=== PATIENT | male | born 1970 | race Hispanic/Latino ===

== ENCOUNTER 2018-10-28 19:07 | Inpatient (IN) | payer MEDICAID ==
--- NOTE | 2018-10-28 19:55 | C.PDOC ---
History Of Present Illness 48 year old male presents to the ED requesting detox for alcohol and heroin abuse. Patient reports his last use was today [employer]. Patient denies SI/HI, hallucinations, injury, fall, trauma. Time Seen by Provider: 10/28/18 19:54 Chief Complaint (Nursing): Substance Abuse History Per: Patient History/Exam Limitations: intoxication Onset/Duration Of Symptoms: Hrs Current Symptoms Are (Timing): Still Present Suicide/Self Injury Attempted (Context): None Modifying Factor(s): Alcohol, Narcotics Associated Symptoms: denies: Depression, Suicidal Thoughts, Suicidal Plan Recent travel outside of the [place]: No Additional History Per: Patient Past Medical History Reviewed: Historical Data, Nursing Documentation, Vital Signs Vital Signs: Last Vital Signs Temp 98.2 F 10/28/18 19:23 Pulse 62 10/28/18 19:23 Resp 20 10/28/18 19:23 BP 150/100 H 10/28/18 19:23 Pulse Ox 96 10/28/18 19:23 - Medical History PMH: No Chronic Diseases Surgical History: No Surg Hx Family History: States: Unknown Family Hx - Social History Hx Alcohol Use: Yes Hx Substance Use: Yes - Immunization History Hx Tetanus Toxoid Vaccination: No Hx Influenza Vaccination: No Hx Pneumococcal Vaccination: No Review Of Systems Constitutional: Negative for: Fever, Chills Cardiovascular: Negative for: Chest Pain, Palpitations Respiratory: Negative for: Shortness of Breath Gastrointestinal: Negative for: Vomiting, Abdominal Pain Skin: Negative for: Rash Psych: Negative for: Depression, Suicidal ideation Physical Exam - Physical Exam Appears: Non-toxic, No Acute Distress Skin: Warm, Dry Head: Normacephalic Eye(s): bilateral: Normal Inspection Neck: Supple Chest: Symmetrical Cardiovascular: Rhythm Regular Respiratory: No Rales, No Rhonchi, No Wheezing Gastrointestinal/Abdominal: Soft, No Tenderness, No Guarding, No Rebound Extremity: Bilateral: Atraumatic, Normal Color And Temperature, Normal ROM Neurological/Psych: Oriented x3, Normal Speech, Normal Cognition Gait: Steady ED Course And Treatment - Laboratory Results Result Diagrams: 10/28/18 20:36 10/28/18 20:36 O2 Sat by Pulse Oximetry: 96 (ON RA) Pulse Ox Interpretation: Normal Progress Note: Plan: - Labs. - UA. - Crisis Disposition Discussed With : Glenn Moses Comment: accepted the pt on his service and took over the care at 10PM Doctor Will See Patient In The: Hospital Counseled Patient/Family Regarding: Studies Performed, Diagnosis - Disposition Disposition: HOSPITALIZED Disposition Time: 19:54 Condition: FAIR Forms: [facility] (Japanese) - Clinical Impression Clinical Impression: Alcohol use disorder, severe, dependence, Opioid use disorder, severe, dependence - Scribe Statement The provider has reviewed the documentation as recorded by the Scribe Burke Hollingsworth All medical record entries made by the Scribe were at my direction and personally dictated by me. I have reviewed the chart and agree that the record accurately reflects my personal performance of the history, physical exam, medical decision making, and the department course for this patient. I have also personally directed, reviewed, and agree with the discharge instructions and disposition. Decision To Admit - Pt Status Changed To: Hospital Disposition Of: Inpatient - Admit Certification Admit to Inpatient:: After my assessment, the patient will require hospitalization for at least two midnights. This is because of the severity of symptoms shown, intensity of services needed, and/or the medical risk in this patient being treated as an outpatient. - InPatient: Physician Admission Certification: I certify that this patient requires 2 or more midnights of care for the following reason:: After my assessment, the patient will require hospitalization for at least two midnights. This is because of the severity of symptoms shown, intensity of services needed, and/or the medical risk in this patient being treated as an outpatient. - . Bed Request Type: Detox Admitting Physician: Glenn Moses Patient Diagnosis: Alcohol use disorder, severe, dependence, Opioid use disorder, severe, dependence
[2018-10-28 20:41] LABS: BASO # 0.2 K/uL (0.0-0.2); EOS # 0.1 K/uL (0.0-0.7); EOS % 0.9 % (0.0-4.0); HEMOGLOBIN 13.2 g/dL (12.0-18.0); LYMPH # 1.9 K/uL (1.0-4.3); LYMPH % 31.2 % (20.0-40.0); MEAN CELL VOLUME 100.7 fL (80.0-94.0); MEAN CORPUSCULAR HGB CONC 33.8 g/dL (33.0-37.0); MEAN PLATELET VOLUME 8.9 fL (7.2-11.7); MONO # 0.6 K/uL (0.0-0.8); NEUT # 3.3 K/uL (1.8-7.0); NEUT % 54.9 % (50.0-75.0); NRBC % 0.1 % (0.0-2.0); RBC 3.88 Mil/uL (4.40-5.90); RED CELL DISTRIBUTION WIDTH 12.6 % (11.5-14.5)
[2018-10-28 20:45] LABS: SQUAMOUS EPITHIAL < 1 /hpf (0-5); URINE BACTERIA OCC (<OCC); URINE BILIRUBIN NEGATIVE (NEGATIVE); URINE BLOOD NEGATIVE (NEGATIVE); URINE CLARITY Clear (Clear); URINE COLOR Straw (YELLOW); URINE GLUCOSE (UA) NORMAL (Normal); URINE LEUKOCYTE ESTERASE NEG Leu/uL (Negative); URINE PROTEIN NEGATIVE (NEGATIVE); URINE UROBILINOGEN NORMAL mg/dL (0.2-1.0)
[2018-10-28 20:55] LABS: ALB/GLOB RATIO 1.3 (1.0-2.1); ALBUMIN 4.5 g/dL (3.5-5.0); ALT/SGPT 276 U/L (21-72); AST/SGOT 168 U/L (17-59); BLOOD UREA NITROGEN 8 mg/dL (9-20); CALCIUM 8.7 mg/dl (8.6-10.4); GFR NON-AFRICAN AMERICAN > 60
[2018-10-28 21:14] LABS: OPIATES, UR POSITIVE (NEGATIVE); PHENCYCLIDINE, UR NEGATIVE (NEGATIVE)
[2018-10-28 21:28] LABS: BARBITURATES, UR NEGATIVE (NEGATIVE); BENZODIAZEPINES, UR NEGATIVE (NEGATIVE)
[2018-10-28] MEDS ORDERED: Aluminum Hydroxide/Magnesium Hydroxide Susp (30 mL) PO PRN (23:31)
--- NOTE | 2018-10-29 00:33 | PCM.BM ---
<Zander Albarado - Last Filed: 10/29/18 00:30> Treatment Plan Problems - Problems identified on initial assessmt defensive coping Date Initiated: 10/29/18 Time Initiated: 00:32 Assessment reference: NA Status: Active altered family process Date Initiated: 10/29/18 Time Initiated: 00:33 Assessment reference: NA Status: Active knowledge deficit r/t alcohol use Date Initiated: 10/29/18 Time Initiated: 00:34 Assessment reference: NA Status: Active Treatment assets and liabiliti Patient Assests: cooperative, ADL independent, cognitively intact Patient Liabilities: substance abuse - Milieu Protocol Maintain good personal hygiene: daily Encourage regular showers, daily Remind patient to perform daily oral care, daily Assist patient to perform ADL's Maintain personal safety: every shift Educate patient to report safety concerns to staff, every shift Monitor environment for contraband/sharps Medication safety: Monitor for expected outcome, potential side effects: every shift, Assess barriers to learning: every shift, Assess readiness for medication education: every shift <Rafy Melendez - Last Filed: 10/29/18 14:40> - Diagnosis (1) Alcohol use disorder, severe, dependence Status: Acute Interventions: 10/29/18 14:40 * Assess 7x/week regarding severity of withdrawal * Educate regarding risks, benefits, side effects and alternatives of medications * Use Motivational Interviewing for abstinence * Use CBT for relapse prevention * Medication management for withdrawal symptoms * Encourage medication assisted treatment * (2) Opioid use disorder, severe, dependence Status: Acute Interventions: 10/29/18 14:40 * Assess 7x/week regarding severity of withdrawal * Educate regarding risks, benefits, side effects and alternatives of medications * Use Motivational Interviewing for abstinence * Use CBT for relapse prevention * Medication management for withdrawal symptoms * Encourage medication assisted treatment *
[2018-10-29] MEDS: Multiple Vitamins Tab PO SCH (09:44)
--- NOTE | 2018-10-29 13:05 | PCM.PSYCH ---
Initial Psychiatric Evaluation - Initial Psychiatric Evaluation Type of Admission: Voluntary Legal Status: Capacity Chief Complaint (in patient's own words): "I am withdrawing" History of Present Illness and Precipitating Events: 48 yo male, , living with his and 16 year old son in [place], unemployed presents for detox from heroin. Pt reports using heroin via IV daily for 19 years. He uses up to 40 bags a day, his last use was 10/28 . Pt was previously involved in a Methadone program for one year but stopped 3 weeks ago. He was on 90 mg of Methadone daily. Pt denies any overdoses or periods of sobriety. Pt reports daily alcohol use since age 11. He drinks 10, 24 ounce cans of beer and few shots of joe daily, his last use was 10/28. He reports hx of blackouts, but denies any DTs, or seizures. Pt also states he smokes marijuana occasionally. Pt states he has been to detox 3x and 1 outpatient rehab, last detox was 10 years ago. Pt admits to hx of trauma after finding his 26 year old son from drug overdose. Pt currently denies any SI or HI. PMHx: Hep C, HTN with no f/u or medication for either Psych Hx: denies but he has PTSD sxs from finding his son OD'ed and . Family Psych Hx: none Current Medications: Active Medications Generic Name Dose Route Start Last Admin Trade Name Freq PRN Reason Stop Dose Admin Al Hydrox/Mg Hydrox/Simethicone 30 ml 10/28/18 23:31 Maalox 30 Ml PO TID PRN Indigestion / Heartburn Clonidine HCl 0.1 mg 10/28/18 23:31 Catapres PO Q4 PRN COWS Score More or Equal to 5 Dicyclomine HCl 10 mg 10/28/18 23:25 Bentyl PO Q6 PRN Muscle spasm Folic Acid 1 mg 10/29/18 10:00 10/29/18 09:44 Folic Acid PO 1 mg DAILY CHELO Administration Hydroxyzine HCl 25 mg 10/28/18 23:23 10/28/18 23:40 Atarax PO 25 mg Q6 PRN Administration Anxiety Ibuprofen 600 mg 10/28/18 23:28 Motrin Tab PO Q6 PRN Pain, moderate (4-7) Loperamide HCl 2 mg 10/28/18 23:31 Imodium PO Q8 PRN Diarrhea Lorazepam 1 mg 10/28/18 23:30 10/29/18 09:45 Ativan PO 1 mg Q4H PRN Administration Symptoms of alcohol withdrawl Lorazepam 1 mg 10/28/18 23:30 10/29/18 12:37 Ativan PO 11/02/18 23:29 1 mg Q4 CHELO Administration Taper Methadone HCl 20 mg 10/29/18 13:00 Methadone PO 10/29/18 13:01 ONCE ONE Mirtazapine 15 mg 10/29/18 22:00 Remeron PO HS CHELO Multivitamins 1 tab 10/29/18 10:00 10/29/18 09:44 Hexavitamin PO 1 tab DAILY CHELO Administration Ondansetron HCl 4 mg 10/28/18 23:31 Zofran Tab PO Q8 PRN Nausea/Vomiting Pseudoephedrine HCl 60 mg 10/28/18 23:31 Sudafed Tab PO QID PRN Nasal/Sinus Congestion Thiamine HCl 100 mg 10/29/18 10:00 10/29/18 09:47 Vitamin B1 Tab PO Not Given DAILY CHELO Trazodone HCl 50 mg 10/28/18 23:28 10/28/18 23:41 Desyrel PO 50 mg HS PRN Administration Insomnia Past Psychiatric History - Past Psychiatric History Previous Treatment History: None Pertinent Medical Hx (Current Medical&Sleep Prob, Allergies): Allergies Allergy/AdvReac Type Severity Reaction Status Date / Time No Known Allergies Allergy Verified 10/28/18 19:26 Review of Systems - Psychiatric Psychiatric: Abnormal Sleep Pattern, Anhedonia, Anxiety, Change in Appetite, Depression, Difficulty Concentrating, Irritability. absent: Hallucinations, Homicidal Ideation, Paranoia, Suicidal Ideation Mental Status Examination - Personal Presentation Personal Presentation: Looks stated age - Affect Affect: Constricted - Motor Activity Motor Activity: Calm - Reliability in Providing Information Reliability in Providing Information: Good - Speech Speech: Organized - Mood Mood: Depressed, Anxious - Formal Thought Process Formal Thought Process: No Impairment - Cognitive Functions Orientation: Person, Place, Situation, Time Sensorium: Alert Attention/Concentration: Easily distracted Estimate of Intelligence: Average Judgement: Intact, as evidence by: Insight regarding need for hospitalization Memory: Recent intact, as evidence by: Ability to recall events of the day, Remote intact, as evidenced by: Abilit to recall sig. life events - Risk Risk: Withdrawal, Diminished functioning - Strength & Assets Inventory Strength & Assets Inventory: Cooperative - Limitations Limitations: Other DSM 5 DX - DSM 5 DSM 5 Diagnosis: Alcohol use disorder, severe Alcohol withdrawal Opioid use disorder, severe Opioid withdrawal PTSD Depressive d/o - unspecified - Recommended/Plan of Treatment Treatment Recommendations and Plan of Treatment: Taper with Methadone for opioids Taper with ativan for alcohol (LFTs are elevated) Gabapentin for augmentation Remeron for mood and insomnia Start on Thiamine, Folic Acid, multivitamins, Remeron, As needed medications Maalox, Clonidine, Bentyl, Atarax, Motrin, Imodium, Zofran, Ativan, Sudafed, Trazadone All risks, benefits and alternatives of the meds discussed, and the pt agreed and understood. Attend groups and activities Supportive therapy and psychoeducation IN for abstinence CBT for relapse prevention Encourage MAT Refer to rehab or IOP, and self-help groups Teach healthy lifestyle methods, i.e. diet, exercise, meditation Smoking cessation with IN Nicotine patch if needed 35 min Projected ELOS: 34 min Prognosis: [facility] treatment - Smoking Cessation Smoking Cessation Initiated: Yes
[2018-10-30] MEDS: Multiple Vitamins Tab PO SCH (10:30)
[2018-10-31] MEDS: Multiple Vitamins Tab PO SCH (09:37)
--- NOTE | 2018-10-31 10:24 | PCM.PYCHPN ---
Psychiatric Progress Note - Psychiatric Progress Note Patient seen today, length of contact: 16 min Patient Chief Complaint: "I am so so" Problems Identified/Issues Discussed: The pt is seen, chart reviewed, case is discussed with staff. Support and psychoeducation given, CBT and WI used briefly The pt is improving slowly but needs more time due to severity of symptoms and relapse risk. No SEs from medications, risks discussed. After care discussed Medication Change: Yes (detox changes daily) Medical Record Reviewed: Yes Mental Status Examination - Cognitive Function Orientation: Person, Place, Situation, Time Memory: Intact Attention: WNL Concentration: Poor Association: WNL Fund of Knowledge: WNL - Mood Mood: Depressed, Anxious - Affect Affect: Constricted - Speech Speech: Appropriate - Formal Thought Process Formal Thought Process: No Impairment - Suicidal Ideation Suicidal Ideation: No - Homicidal Ideation Homicidal Ideation: No Goal/Treatment Plan - Goal/Treatment Plan Need for Continued Stay: Discharge may exacerbated symptoms, Severe functional impairment Progress Toward Problem(s) and Goals/Treatment Plan: Taper with Methadone for opioids Taper with ativan for alcohol (LFTs are elevated) Gabapentin for augmentation Remeron for mood and insomnia Start on Thiamine, Folic Acid, multivitamins, Remeron, As needed medications Maalox, Clonidine, Bentyl, Atarax, Motrin, Imodium, Zofran, Ativan, Sudafed, Trazadone All risks, benefits and alternatives of the meds discussed, and the pt agreed and understood. Attend groups and activities Supportive therapy and psychoeducation [place] for abstinence CBT for relapse prevention Encourage MAT Refer to rehab or IOP, and self-help groups Teach healthy lifestyle methods, i.e. diet, exercise, meditation Smoking cessation with [place] Nicotine patch if needed
--- NOTE | 2018-10-31 10:24 | PCM.PYCHPN ---
Psychiatric Progress Note - Psychiatric Progress Note Patient seen today, length of contact: 16 min Patient Chief Complaint: "I am not OK yet" Problems Identified/Issues Discussed: The pt is seen, chart reviewed, case discussed with staff. The pt is compliant with medications and reports no side-effects. Symptoms are improving but needs more time to stabilize. Pt attends groups and activities. Support given, psycho-education provided. After care discussed. Medication Change: Yes (detox changes daily) Medical Record Reviewed: Yes Mental Status Examination - Cognitive Function Orientation: Person, Place, Situation, Time Memory: Intact Attention: WNL Concentration: Poor Association: WNL Fund of Knowledge: WNL - Mood Mood: Depressed, Anxious - Affect Affect: Constricted - Speech Speech: Appropriate - Formal Thought Process Formal Thought Process: No Impairment - Suicidal Ideation Suicidal Ideation: No - Homicidal Ideation Homicidal Ideation: No Goal/Treatment Plan - Goal/Treatment Plan Need for Continued Stay: Discharge may exacerbated symptoms, Severe functional impairment Progress Toward Problem(s) and Goals/Treatment Plan: Taper with Methadone for opioids Taper with ativan for alcohol (LFTs are elevated) Gabapentin for augmentation Remeron for mood and insomnia Start on Thiamine, Folic Acid, multivitamins, Remeron, As needed medications Maalox, Clonidine, Bentyl, Atarax, Motrin, Imodium, Zofran, Ativan, Sudafed, Trazadone All risks, benefits and alternatives of the meds discussed, and the pt agreed and understood. Attend groups and activities Supportive therapy and psychoeducation [place] for abstinence CBT for relapse prevention Encourage MAT Refer to rehab or IOP, and self-help groups Teach healthy lifestyle methods, i.e. diet, exercise, meditation Smoking cessation with SC Nicotine patch if needed
[2018-10-31 14:47] VITALS: RESP 18
[2018-10-31 17:29] VITALS: TEMP 97
--- NOTE | 2018-11-01 08:47 | PCM.PYCHDC ---
Mental Status Examination - Mental Status Examination Orientation: Person, Place, Situation, Time Memory: Intact Mood: Anxious Affect: Constricted Speech: Appropriate Attention: WNL Concentration: Poor Association: WNL Fund of Knowledge: WNL Formal Thought Process: No Impairment Suicidal Ideation: No Current Homicidal Ideation?: No Discharge Summary - Discharge Note Reason for Hospitalization: Opioid and alcohol detox Consultations:: List each consultation separately and include: 1. Reason for request. 2. Findings. 3. Follow-up Summary of Hospital Course include:: 1. Description of specific treatment plan utilized for patients during their course of treatmen. 2. Summarize the time- course for resolution of acute symptoms and/or regressed behaviors. 3. Describe issues identified and worked on during hospitalization. 4. Describe medication utilized. 5. Describe medical problems identified and treated. 6. Reassessment of suicide risk Summary of Hospital Course: 48 yo male, , living with his and 16 year old son in [place], unemployed presents for detox from heroin. On admission: Pt reports using heroin via IV daily for 19 years. He uses up to 40 bags a day, his last use was 10/28 . Pt was previously involved in a Methadone program for one year but stopped 3 weeks ago. He was on 90 mg of Methadone daily. Pt denies any overdoses or periods of sobriety. Pt reports daily alcohol use since age 11. He drinks 10, 24 ounce cans of beer and few shots of joe daily, his last use was 10/28. He reports hx of blackouts, but denies any DTs, or seizures. Pt also states he smokes marijuana occasionally. Pt states he has been to detox 3x and 1 outpatient rehab, last detox was 10 years ago. Pt admits to hx of trauma after finding his 26 year old son from drug overdose. Pt currently denies any SI or HI. PMHx: Hep C, HTN with no f/u or medication for either Psych Hx: denies but he has PTSD sxs from finding his son OD'ed and . Family Psych Hx: none Hospital course: The pt was admitted and started on treatment with psychotherapy, support, psychoeducation and medications. All the risks and benefits of medications are discussed and the patient understood and agreed. ND and CBT used. The pt attended groups and activities, as well as milieu therapy. The pt improved with the treatments provided. After care discussed with the patient. He was irate at times but calmed down. He left a day early but completed most of his detox and was stable enough. Risks are still discussed, though He will go to [facility] in [place]. - Final Diagnosis (DSM 5) Condition upon Discharge: IMPROVED DSM 5: Alcohol use disorder, severe Alcohol withdrawal Opioid use disorder, severe Opioid withdrawal PTSD Depressive d/o - unspecified Disposition: HOME/ ROUTINE Follow-up Treatment Plan: Continue below medications after discharge. Follow after care plan as discussed. Use relapse prevention skills Return to ER or call 911 if suicidal, homicidal or symptoms relapse. Stay away from stress, alcohol and drugs. See primary doctor regularly and get labs. Prescriptions/Medication Reconciliation: Mirtazapine [Remeron] 15 mg PO HS #30 tab
[2018-11-01] MEDS: Multiple Vitamins Tab PO SCH (09:04)
[2018-11-01 10:33] VITALS: BP 135/94; PULSE 90; O2SAT 100
== END 2018-11-01 10:37 | disposition home or self-care (01) | DRG 744 ==
LOC: C.ER 19:07 → C.7D 22:03
PROVIDERS: ADMIT Psychiatry & Neurology Psychiatry; ATTEND Psychiatry & Neurology Psychiatry
PROC: HZ2ZZZZ Detoxification Services for Substance Abuse Treatment (ICD-10-PCS; principal; 2018-10-28)
PROC: HZ56ZZZ Individual Psychotherapy for Substance Abuse Treatment, Psychoeducation (ICD-10-PCS; 2018-10-28)
PROC: GZ3ZZZZ Medication Management (ICD-10-PCS; 2018-10-28)
PROC: HZ81ZZZ Medication Management for Substance Abuse Treatment, Methadone Maintenance (ICD-10-PCS; 2018-10-28)
PROC: HZ80ZZZ Medication Management for Substance Abuse Treatment, Nicotine Replacement (ICD-10-PCS; 2018-10-28)
PROC: HZ59ZZZ Individual Psychotherapy for Substance Abuse Treatment, Supportive (ICD-10-PCS; 2018-10-28)
DX: F10.230 Alcohol dependence with withdrawal, uncomplicated (principal); F11.23 Opioid dependence with withdrawal; F12.90 Cannabis use, unspecified, uncomplicated; F32.9 Major depressive disorder, single episode, unspecified; F43.10 Post-traumatic stress disorder, unspecified; F17.210 Nicotine dependence, cigarettes, uncomplicated; B19.20 Unspecified viral hepatitis C without hepatic coma; I10 Essential (primary) hypertension; Y90.7 Blood alcohol level of 200-239 mg/100 ml; G47.00 Insomnia, unspecified